=== PATIENT | male | born 1990 | race Caucasian/White ===

== ENCOUNTER 2016-09-17 22:12 | Emergency (ER) | payer BC ==
[2016-09-17] MEDS ORDERED: no meds (22:40)
[2016-09-18] MEDS ORDERED: KEFLEX500 M4 PO (00:12)
== END 2016-09-18 00:32 ==
LOC: EDMED 22:12
PROC: 0HQGXZZ Repair Left Hand Skin, External Approach (ICD-10-PCS; principal; 2016-09-18)
DX: S61.313A Laceration without foreign body of left middle finger with damage to nail, initial encounter (principal); Z23 Encounter for immunization; W27.8XXA Contact with other nonpowered hand tool, initial encounter; Y92.019 Unspecified place in single-family (private) house as the place of occurrence of the external cause